=== PATIENT | male | born 1985 | race Hispanic/Latino ===

== ENCOUNTER 2023-03-12 23:16 | Emergency (ER) | payer OTHER ==
[~2023-03-12] VITALS: Ht 167.6 cm; Wt 77.0 kg
[2023-03-12 23:24] VITALS: BP 140/89
[2023-03-12 23:30] VITALS: BP 136/98
[2023-03-12 23:46] VITALS: BP 134/92
[2023-03-13 00:14] VITALS: BP 134/92
== END 2023-03-13 00:15 | disposition left against medical advice (07) | DRG 923 ==
LOC: ED 23:16
DX: Z04.1 Encounter for examination and observation following transport accident (principal)